=== PATIENT | female | born 1985 | race Caucasian/White ===

== ENCOUNTER 2018-08-20 17:05 | Emergency (ER) | payer OTHER ==
[2018-08-20 19:20] VITALS: BP 146/77
--- NOTE | 2018-08-20 19:40 | ED ---
Skin Complaint - HPI Summary HPI Summary: 33 yr old with swelling left axilla. Onset of symptoms a week ago. The patient shaved, developed a pimple, popped the pimple five days ago, put deodorant on again, and then area swelled up more over the weekend. No fever, chills. No other complaints. - History of Current Complaint Chief Complaint: UCSkin Time Seen by Provider: 08/20/18 19:29 Stated Complaint: SKIN COMPLAINT Hx Last Menstrual Period: 08/12/18 Pain Intensity: 2 - Allergy/Home Medications Allergies/Adverse Reactions: Allergies Allergy/AdvReac Type Severity Reaction Status Date / Time acetaminophen Allergy Itching Verified 08/20/18 19:17 Home Medications: Home Medications FLUoxetine CAP* [PROzac CAP*] 5 mg PO DAILY 08/20/18 [History Confirmed 08/20/18 ] PMH/Surg Hx/FS Hx/Imm Hx - Surgical History Surgery Procedure, Year, and Place: 11/2014 Infectious Disease History: No Infectious Disease History: Denies: Traveled Outside the [place] in Last 30 Days - Family History Known Family History: Positive: None - Social History Alcohol Use: None Substance Use Type: Reports: None Smoking Status (MU): Never Smoked Tobacco Review of Systems Constitutional: Negative Positive: Other - skin swelling axilla left All Other Systems Reviewed And Are Negative: Yes Physical Exam Triage Information Reviewed: Yes Vital Signs On Initial Exam: Initial Vitals Temp Pulse Resp BP Pulse Ox 97.8 F 83 15 146/77 100 08/20/18 19:14 08/20/18 19:14 08/20/18 19:14 08/20/18 19:14 08/20/18 19:14 Appearance: Positive: Well-Appearing Skin: Positive: Warm, Other - left axilla is with induration about 2 cm, no fluctuance, mild cellulitis. Head/Face: Positive: Normal Head/Face Inspection Eyes: Positive: EOMI ENT: Positive: Normal ENT inspection Neck: Positive: Nontender Respiratory/Lung Sounds: Positive: Clear to Auscultation, Breath Sounds Present Cardiovascular: Positive: RRR. Negative: Murmur Abdomen Description: Negative: Distended Musculoskeletal: Positive: Strength/ROM Intact Neurological: Positive: Sensory/Motor Intact, Alert, Oriented to Person Place, Time, CN Intact II-III Psychiatric: Positive: Normal Diagnostics - Vital Signs Vital Signs Temp Pulse Resp BP Pulse Ox 08/20/18 19:14 97.8 F 83 15 146/77 100 - Laboratory Lab Statement: Any lab studies that have been ordered have been reviewed, and results considered in the medical decision making process. Course/Dx - Course Course Of Treatment: folliculitis. Rx Bactrim DS. - Diagnoses Provider Diagnoses: Folliculitis Discharge - Sign-Out/Discharge Documenting (check all that apply): Patient Departure All imaging exams completed and their final reports reviewed: No Studies - Discharge Plan Condition: Good Disposition: HOME Prescriptions: Sulfamethox/Trimethoprim DS* [Bactrim DS 800/160 TAB*] 1 tab PO BID #20 tab Patient Education Materials: Furunculosis and Carbunculosis (ED), Hypertension (ED) Referrals: Rachel Ryan PA [Primary Care Provider] - 3 Days - Billing Disposition and Condition Condition: GOOD Disposition: Home
--- NOTE | 2018-08-21 20:42 | ED ---
Progress - Progress Note Progress Note: The patient reports that she has not taken the bactrim today. It made her stomach feel warm last night after taking, and that was the only symptoms after taking it. No hives, no SOB, no pain. Presently she is feeling much better. The patient states that her left axilla has drained today pus, it is much smaller, it is not painful. She feels it has gotten much better already. She does not want to take the antibiotics at this point, and she is going to follow up with her primary doctor tomorrow. Course/Dx - Course Course Of Treatment: folliculitis. Rx Bactrim DS. - Diagnoses Provider Diagnoses: Folliculitis Discharge - Sign-Out/Discharge Documenting (check all that apply): Patient Departure All imaging exams completed and their final reports reviewed: No Studies - Discharge Plan Condition: Good Disposition: HOME Prescriptions: Sulfamethox/Trimethoprim DS* [Bactrim DS 800/160 TAB*] 1 tab PO BID #20 tab Patient Education Materials: Furunculosis and Carbunculosis (ED), Hypertension (ED) Referrals: Rachel Ryan PA [Primary Care Provider] - 3 Days - Billing Disposition and Condition Condition: GOOD Disposition: Home
== END 2018-08-20 19:42 | disposition home or self-care (01) ==
LOC: UCCORT 17:05
DX: L73.9 Follicular disorder, unspecified (principal); Z88.6 Allergy status to analgesic agent
CPT/HCPCS: 99202; G0463

== ENCOUNTER 2018-11-03 17:22 | Emergency (ER) | payer OTHER ==
--- NOTE | 2018-11-03 17:59 | UC ---
Skin Complaint HPI - HPI Summary HPI Summary: 33 yo female presents with LEFT axilla area of redness, pain, and swelling for the last 2-3 days. She tells me that she had a boil here in the past that spontaneously started draining and resolved on it's own. This one seems to be more under the skin and has noticed some surrounding redness. Denies fever, chills. - History of Current Complaint Time Seen by Provider: 11/03/18 17:56 Stated Complaint: UNDERARM LUMP LEFT SIDE Hx Obtained From: Patient Hx Last Menstrual Period: 08/12/18 Onset/Duration: Gradual Onset Timing: Constant Onset Severity: Mild Current Severity: Mild Pain Intensity: 3 Pain Scale Used: 0-10 Numeric - Allergy/Home Medications Allergies/Adverse Reactions: Allergies Allergy/AdvReac Type Severity Reaction Status Date / Time acetaminophen Allergy Itching Verified 08/20/18 19:17 PMH/Surg Hx/FS Hx/Imm Hx Psychological History: Anxiety, Depression - Surgical History Surgical History: Yes Surgery Procedure, Year, and Place: 11/2014 - Family History Known Family History: Positive: None - Social History Occupation: Employed Full-time Lives: With Family Alcohol Use: None Substance Use Type: None Smoking Status (MU): Never Smoked Tobacco Review of Systems All Other Systems Reviewed And Are Negative: Yes Constitutional: Positive: Negative Respiratory: Positive: Negative Cardiovascular: Positive: Negative Neurovascular: Positive: Negative Neurological: Positive: Negative Psychological: Positive: Negative Physical Exam - Summary Physical Exam Summary: GENERAL: NAD. WDWN. No pain distress. SKIN: Left axilla with 2.0cm area of moderate erythema and induration with subcutaneous hardness. Mild warmth and TTP. No streaking. No fluctuance. NECK: Supple. Nontender. No lymphadenopathy. CHEST: No accessory muscle use. Breathing comfortably and in no distress. CV: Pulses intact. Cap refill <2seconds NEURO: Alert. PSYCH: Age appropriate behavior. Triage Information Reviewed: Yes Vital Signs: Vital Signs: Temp Pulse Resp BP Pulse Ox 98.6 F 78 14 117/62 100 11/03/18 17:59 11/03/18 17:59 11/03/18 17:59 11/03/18 17:59 11/03/18 17:59 Vital Signs Reviewed: Yes Course/Dx - Course Course Of Treatment: Abscess left axilla. Not ready for I&D at this time. Will place her on keflex and have her apply a cool compress. Return if this needs drainage. - Diagnoses Provider Diagnosis: Abscess of left axilla Discharge - Sign-Out/Discharge Documenting (check all that apply): Patient Departure All imaging exams completed and their final reports reviewed: No Studies - Discharge Plan Condition: Stable Disposition: HOME Prescriptions: Cephalexin CAP* [Keflex CAP*] 500 mg PO TID #21 cap Patient Education Materials: Abscess (ED) Referrals: Rachel Ryan PA [Primary Care Provider] - Additional Instructions: If you develop a fever, shortness of breath, chest pain, new or worsening symptoms - please call your PCP or go to the ED. Apply a cool compress to the area for pain and swelling relief The antibiotic may resolve the abscess OR may bright it to a "head" where it will requiring draining - if this happens, please return and we can drain this for you. - Billing Disposition and Condition Condition: STABLE Disposition: Home
[2018-11-03 18:05] VITALS: BP 117/62
== END 2018-11-03 18:09 | disposition home or self-care (01) ==
LOC: UCCORT 17:22
DX: L02.412 Cutaneous abscess of left axilla (principal); Z88.6 Allergy status to analgesic agent
CPT/HCPCS: 99212; G0463

== ENCOUNTER 2019-03-26 15:21 | Emergency (ER) | payer OTHER ==
[2019-03-26 15:44] VITALS: BP 122/75
--- NOTE | 2019-03-26 16:05 | ED ---
Skin Complaint - HPI Summary HPI Summary: 33 yr old female with the complaint of furnuncel right lateral thigh. The patient has had this problem in the past, and last was 2-3 months ago. She shaves frequently and uses her older razors sometimes. This boil begain four days ago and has gotten larger. She has some very smaller red spots on the other leg and in the left axilla where she has been shaving. - History of Current Complaint Chief Complaint: UCSkin Time Seen by Provider: 03/26/19 15:46 Stated Complaint: RIGHT LEG SKIN CONCERN Hx Last Menstrual Period: 08/12/18 Pain Intensity: 0 - Allergy/Home Medications Allergies/Adverse Reactions: Allergies Allergy/AdvReac Type Severity Reaction Status Date / Time acetaminophen Allergy See Comment Verified 03/26/19 15:40 Home Medications: Home Medications Multivitamin [Multivitamins] 1 cap PO DAILY 03/26/19 [History Confirmed 03/26/19 ] PMH/Surg Hx/FS Hx/Imm Hx Endocrine/Hematology History: Denies: Hx Diabetes, Hx Thyroid Disease Cardiovascular History: Denies: Hx Hypertension Respiratory History: Denies: Hx Asthma, Hx Chronic Obstructive Pulmonary Disease (COPD) GI History: Denies: Hx Ulcer - Surgical History Surgery Procedure, Year, and Place: 11/2014 Infectious Disease History: No Infectious Disease History: Denies: Hx Hepatitis, Hx Human Immunodeficiency Virus (HIV), Traveled Outside the US in Last 30 Days - Family History Known Family History: Positive: None - Social History Alcohol Use: None Substance Use Type: Reports: None Smoking Status (MU): Never Smoked Tobacco Review of Systems Constitutional: Negative Positive: Other - furuncle All Other Systems Reviewed And Are Negative: Yes Physical Exam Triage Information Reviewed: Yes Vital Signs On Initial Exam: Initial Vitals Temp Pulse Resp BP Pulse Ox 99.4 F 80 18 122/75 100 03/26/19 15:33 03/26/19 15:33 03/26/19 15:33 03/26/19 15:33 03/26/19 15:33 Vital Signs Reviewed: Yes Appearance: Positive: Well-Appearing, No Pain Distress Skin: Positive: Other - furuncle right thigh without fluctuance. There are smaller lesions right lower and left lower leg with also left axilla over hair follicles. Eyes: Positive: EOMI ENT: Positive: Normal ENT inspection Neck: Positive: Nontender Respiratory/Lung Sounds: Positive: Clear to Auscultation, Breath Sounds Present Cardiovascular: Positive: RRR. Negative: Murmur Abdomen Description: Negative: Distended Musculoskeletal: Positive: Strength/ROM Intact Neurological: Positive: Sensory/Motor Intact, Alert, Oriented to Person Place, Time, CN Intact II-III, Normal Gait, Speech Normal Psychiatric: Positive: Normal Diagnostics - Vital Signs Vital Signs Temp Pulse Resp BP Pulse Ox 03/26/19 15:33 99.4 F 80 18 122/75 100 - Laboratory Lab Statement: Any lab studies that have been ordered have been reviewed, and results considered in the medical decision making process. Course/Dx - Course Course Of Treatment: 33 yr old with furuncle and folliculitis. Rx keflex. She states keflex works well for her in the past. She will follow up with PMD. - Diagnoses Provider Diagnoses: Furuncle, Folliculitis Discharge - Sign-Out/Discharge Documenting (check all that apply): Patient Departure All imaging exams completed and their final reports reviewed: No Studies - Discharge Plan Condition: Good Disposition: HOME Prescriptions: Cephalexin CAP* [Keflex CAP*] 500 mg PO QID #40 cap Patient Education Materials: Furunculosis and Carbunculosis (ED) Referrals: Rachel Ryan PA [Primary Care Provider] - 2 Days - Billing Disposition and Condition Condition: GOOD Disposition: Home
== END 2019-03-26 16:06 | disposition home or self-care (01) ==
LOC: UCCORT 15:21
DX: L02.425 Furuncle of right lower limb (principal); L73.9 Follicular disorder, unspecified
CPT/HCPCS: 99212; G0463

== ENCOUNTER 2019-03-29 19:02 | Emergency (ER) | payer OTHER ==
--- OUTSIDE RECORDS SUMMARY | 2019-03-29 19:41 | XMS REPORT | Continuity of Care Document ---
:1985 External Reference #:[id number] Author Name Erica Brewer Care Team Providers Name Role Phone Rachel Ryan RPA Primary Care Physician Unavailable Payers Date Identification Numbers Payment Provider Subscriber Policy Number: [id number] Lif[employer] Benefit Solution Bev Chan [facility] [address] [place] [address] Problems Active Problems Provider Date Vasovagal syncope TALA Urena Onset: 02/06/2019 Note: neurocardiogenic Anxiety disorder TALA Urena Onset: 02/06/2019 Family History Date Family Member(s) Observation Comments Father Hypercholesterolemia Social History Type Date Description Comments Sex Unknown Marital Status Lives With Lives With Son Stephen Occupation Currently Working, [employer] Tobacco Use Start: Unknown Patient has never smoked Smoking Status Reviewed: 03/28/19 Patient has never smoked Allergies, Adverse Reactions, Alerts Active Allergies Reaction Severity Comments Date Bactrim 03/28/2019 Tylenol 03/28/2019 Medications Active Medications SIG Qnty Indications Ordering Provider Date Multi Vitamin Daily 1 by mouth 30tabs [place] 03/28/2019 every day MD Megan Tablets Fluoxetine HCL 1/2 tab by 30caps [place] 03/28/2019 10mg mouth every day MD Megan Capsules Propranolol HCL 1/2 tab by 90tabs [place] 02/06/2019 10mg mouth twice a MD Megan Tablets day Keflex 1 tab by mouth Unknown 500mg Capsules four times a day Vital Signs Date Vital Result Comment 03/28/2019 3:26pm Body Temperature 97.1 F 03/28/2019 3:22pm Height 66 inches 5'6" Weight 163.19 lb Heart Rate 70 /min BP Systolic Sitting 118 mmHg BP Diastolic Sitting 72 mmHg O2 % BldC Oximetry 98 % BMI (Body Mass Index) 26.3 kg/m2 Plan of Treatment 03/28/2019 - Rachelhilton Ryan, PAL02.91 Cutaneous abscess, unspecifiedNew Labs: CBC Auto Diff, Ordered: 03/28/19N93.9 Abnormal uterine and vaginal bleeding, unspecifiedNew Labs:TSH (Thyroid Stim Horm), Ordered: 03/28/19AllNew Medication: Multi Vitamin Daily - 1 by mouth every dayFluoxetine HCL 10 mg - 1/2 tab by mouth every day
[2019-03-29 20:01] VITALS: BP 126/77
--- NOTE | 2019-03-29 20:24 | UC ---
UC General HPI - HPI Summary HPI Summary: pt is c/o a urethral irritation x 2 days and discomfort with urination. she is on day 4 of keflex for a R thigh skin infection that is improving. she saw her pcp who did not do a urine culture because pt is on the keflex. pcp advise she tx for a yeast infection and increase her fluids. she did not tx for the yeast. she denies hx MRSA. she denies risk/concern for pelvic infection. - History of Current Complaint Chief Complaint: UCGU Stated Complaint: URINARY Time Seen by Provider: 03/29/19 19:44 Hx Obtained From: Patient Hx Last Menstrual Period: 03/17/19 Onset/Duration: Gradual Onset Timing: Constant Pain Intensity: 1 Associated Signs & Symptoms: Negative: Abdominal Pain, Fever - Allergy/Home Medications Allergies/Adverse Reactions: Allergies Allergy/AdvReac Type Severity Reaction Status Date / Time acetaminophen AdvReac See Comment Verified 03/29/19 19:55 Sulfa (Sulfonamide AdvReac See Comment Verified 03/29/19 19:55 Antibiotics) PMH/Surg Hx/FS Hx/Imm Hx Psychological History: Anxiety - Surgical History Surgical History: Yes Surgery Procedure, Year, and Place: , 2014 - Family History Known Family History: Positive: None - Social History Alcohol Use: None Substance Use Type: None Smoking Status (MU): Never Smoked Tobacco - Immunization History Vaccination Up to Date: Yes Review of Systems All Other Systems Reviewed And Are Negative: Yes Constitutional: Negative: Fever Skin: Positive: Rash - R thigh Gastrointestinal: Positive: Nausea. Negative: Abdominal Pain, Vomiting, Diarrhea Genitourinary: Positive: Dysuria, Frequency. Negative: Hematuria, Urgency, Vaginal/Penile Discharge, Vaginal/Penile Pain, Ulceration/Lesion, Abnormal Bleeding Physical Exam Triage Information Reviewed: Yes Appearance: Well-Appearing Vital Signs: Initial Vital Signs Temp 97.8 F 03/29/19 19:49 Pulse 75 03/29/19 19:49 Resp 16 03/29/19 19:49 BP 126/77 03/29/19 19:49 Pulse Ox 100 03/29/19 19:49 Vital Signs Reviewed: Yes Eyes: Positive: Conjunctiva Clear ENT: Positive: Normal ENT inspection Neck: Positive: Supple, Nontender, No Lymphadenopathy Respiratory: Positive: Lungs clear, Normal breath sounds Cardiovascular: Positive: RRR, No Murmur Abdomen Description: Positive: Nontender, No Organomegaly, Soft Bowel Sounds: Positive: Present Pelvic Exam: Positive: Other - declined by pt Musculoskeletal: Positive: ROM Intact Neurological: Positive: Alert Psychological: Positive: Age Appropriate Behavior Skin Exam: Normal Skin: Positive: Rashes - R thigh, mild erythema but not fluctuant and no drainage. Diagnostics - Laboratory Lab Results: u/a=1+ blood and trace leukocytes with culture pending. mycoplasma and urea plasma urine tests are pending as well. Course/Dx - Differential Dx - Multi-Symptom Differential Diagnoses: Other - non toxic. no acute abdomen. pelvic declined by pt. pt did deny elizabeth s/s' and risk/concern for pelvic infection/sti. will tx for possible yeast vaginitis, continue the keflex and suggest azo while additional cultures are pending. - Diagnoses Provider Diagnosis: Dysuria Discharge - Sign-Out/Discharge Documenting (check all that apply): Patient Departure All imaging exams completed and their final reports reviewed: No Studies - Discharge Plan Condition: Stable Disposition: HOME Prescriptions: Fluconazole 150 MG TAB* [Diflucan 150 MG TAB*] 150 mg PO ONCE #1 tablet Patient Education Materials: Dysuria (ED) Referrals: Rachel Ryan PA [Primary Care Provider] - 3 Days Additional Instructions: TAKE OVER THE COUNTER AZO PER LABEL. CONTINUE THE KEFLEX. - Billing Disposition and Condition Condition: STABLE Disposition: Home
--- NOTE | 2019-04-01 07:09 | UC ---
- Progress Note Progress Note: urine final no growth no change ljj 04/01/19 Course/Dx - Diagnoses Provider Diagnoses: Dysuria Discharge - Sign-Out/Discharge Documenting (check all that apply): Patient Departure All imaging exams completed and their final reports reviewed: No Studies - Discharge Plan Condition: Stable Disposition: HOME Prescriptions: Fluconazole 150 MG TAB* [Diflucan 150 MG TAB*] 150 mg PO ONCE #1 tablet Patient Education Materials: Dysuria (ED) Referrals: Rachel Ryan PA [Primary Care Provider] - 3 Days Additional Instructions: TAKE OVER THE COUNTER AZO PER LABEL. CONTINUE THE KEFLEX. - Billing Disposition and Condition Condition: STABLE Disposition: Home
[2019-04-03 15:57] LABS: Ureaplasma Source URINE; Ureaplasma parvum PCR Positive; Ureaplasma urealyticum PCR Negative
[2019-04-03 15:59] LABS: Mycoplasma hominis Result Negative; Mycoplasma hominis Source URINE
--- NOTE | 2019-04-03 19:14 | UC ---
- Progress Note Progress Note: pt called and advised of the + ureaplasma parvum. she had slight improvement on the keflex. she has been advised to stop the keflex and that I will tx her with doxycycline. need for f/u stressed. 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 Course/Dx - Diagnoses Provider Diagnoses: Dysuria Discharge - Sign-Out/Discharge Documenting (check all that apply): Patient Departure All imaging exams completed and their final reports reviewed: No Studies - Discharge Plan Condition: Stable Disposition: HOME Prescriptions: DOXYcycline CAP(*) [DOXYcycline 100MG CAP(*)] 100 mg PO BID 7 Days #14 cap Fluconazole 150 MG TAB* [Diflucan 150 MG TAB*] 150 mg PO ONCE #1 tablet Patient Education Materials: Dysuria (ED) Referrals: Rachel Ryan PA [Primary Care Provider] - 3 Days Additional Instructions: TAKE OVER THE COUNTER AZO PER LABEL. CONTINUE THE KEFLEX. - Billing Disposition and Condition Condition: STABLE Disposition: Home
== END 2019-03-29 20:38 | disposition home or self-care (01) ==
LOC: UCCORT 19:02
DX: R30.0 Dysuria (principal)
CPT/HCPCS: 81003; 87086; 87798; 99212; G0463

== ENCOUNTER 2019-04-29 17:03 | Emergency (ER) | payer OTHER ==
--- OUTSIDE RECORDS SUMMARY | 2019-04-29 17:54 | XMS REPORT | Continuity of Care Document ---
:1985 External Reference #:[id number] Author Name Tres Pickens Care Team Providers Name Role Phone Rachel Ryan RPA Primary Care Physician Unavailable Payers Date Identification Numbers Payment Provider Subscriber Policy Number: [id number] [employer] Bev Chan PayID: [facility]BS[facility] [id number] [place] [address] Problems Active Problems Provider Date Vasovagal syncope TALA Urena Onset: 02/06/2019 Note: neurocardiogenic Anxiety disorder TALA Urena Onset: 02/06/2019 Family History Date Family Member(s) Observation Comments Father Hypercholesterolemia Mother Hypercholesterolemia Mother Osteoarthritis Mother Anxiety/depression Social History Type Date Description Comments Sex Unknown Marital Status Lives With Lives With Son Stephen Occupation Currently Working, [employer] Tobacco Use Start: Unknown Patient has never smoked Smoking Status Reviewed: 04/09/19 Patient has never smoked Allergies, Adverse Reactions, Alerts Active Allergies Reaction Severity Comments Date Bactrim 03/28/2019 Tylenol 03/28/2019 Medications Active Medications SIG Qnty Indications Ordering Date Provider Phenazopyridine HCL 1 tab by mouth 12tabs N39.0 Glenroy 04/09/2019 200mg three times a MD Megan Tablets day as needed dysuria Fluoxetine HCL 1/2 tab by Glenroy 04/02/2019 10mg Tablets mouth every day MD Megan Multi Vitamin Daily 1 by mouth 30tabs [place] 03/28/2019 Tablets every day MD Megan Propranolol HCL 1/2 tab by 90tabishop Tim 02/06/2019 10mg Tablets mouth twice a MD Megan day Doxycycline Hyclate one tablet Unknown 100mg twice daily for Capsules 10 days. History Medications Fluoxetine HCL 1/2 tab by 30capjimy Guzman MD 03/28/2019 - 10mg mouth every day 04/02/2019 Capsules Keflex 1 tab by mouth Unknown - 500mg Capsules four times a 04/09/2019 day Vital Signs Date Vital Result Comment 04/09/2019 11:48am Height 66 inches 5'6" Weight 164.25 lb Heart Rate 80 /min BP Systolic Sitting 116 mmHg BP Diastolic Sitting 74 mmHg Body Temperature 97.8 F O2 % BldC Oximetry 98 % BMI (Body Mass Index) 26.5 kg/m2 03/28/2019 3:22pm Height 66 inches 5'6" Weight 163.19 lb Heart Rate 70 /min BP Systolic Sitting 118 mmHg BP Diastolic Sitting 72 mmHg O2 % BldC Oximetry 98 % BMI (Body Mass Index) 26.3 kg/m2 Results Test Date Facility Test Result H/L Range Note Ureaplasma 03/29/2019 [facility] Ureaplasma Source URINE [address] [place] [address] [phone] Ureaplasma urealyticum PCR Negative 1 Ureaplasma parvum PCR Positive Abnormal 2 Mycoplasma Hominis 03/29/2019 [facility] Mycoplasma hominis URINE PCR [address] [place] [address] [phone] Mycoplasma hominis Result Negative 3 Poc Urinalysis 03/29/2019 [facility] Poc Glucose, Negative Negative [address] [place] [address] [phone] Poc Bilirubin, Urine Negative Negative Poc Ketone, Urine Negative Negative Poc Specific [place], Urine 1.010 N 1.010-1.030 Poc Blood, Urine 1+ Abnormal Negative Poc pH, Urine 6.0 N 5-9 Poc Protein, Urine Negative Negative Poc Urobilinogen, Urine 0.2 Negative Poc Nitrite, Urine Negative Negative Poc Leukocytes, Urine Trace Abnormal Negative Poc Color, Urine Light yellow Poc Clarity, Urine Clear 4 Urine Culture And 03/29/2019 [facility] Urine Culture SEE RESULT 5, [address] [place] [address] [phone] REFERENCE VALUE Not Applicable 2 REFERENCE VALUE Not Applicable ADDITIONAL INFORMATION This test was developed and its performance characteristics determined by [facility] in a manner consistent with CLIA requirements. This test has not been cleared or approved by the U.S. Food and Drug Administration. Test Performed by: [facility] - [address] [address] 3 REFERENCE VALUE Not Applicable ADDITIONAL INFORMATION This test was developed and its performance characteristics determined by [facility] in a manner consistent with CLIA requirements. This test has not been cleared or approved by the U.S. Food and Drug Administration. Test Performed by: [facility] - [address] [address] Coutierier: [id number] SEE RESULT BELOW Name: SATINDERBEV Shemar : [address]: Racquel Kelley MD Acct: [id number] Unit: [id number] AGE: 33 Location: [facility] Re03/29/19 SEX: F Status: DEP ER SPEC: [id number] LORENA: 03/29/[address]: Rae EDGAR REQ: [id number] RECD: [id number] STATUS: COMP HR DR: Racquel EDGAR _ SOURCE: URINE SPDESC: ORDERED: Urine Culture COMMENTS: [id number] Procedure Result Reported Site Urine Culture Final 03/31/19- 1204 ML No Growth (<1,000 CFU/mL) * ML - Main Lab . END OF REPORT DEPARTMENT OF PATHOLOGY, [address] [place] [address] Moises Mobley M.D. Director [facility] # [id number] Encounters Type Date Location Provider Dx Diagnosis Office Visit 03/28/2019 [facility] Rachel L02.91 Cutaneous abscess , 3:00p TALA Ryan unspecified N93.9 Abnormal uterine and vaginal bleeding, unspecified Plan of Treatment 04/09/2019 - JAX Urena39.0 Urinary tract infection, site not specifiedNew Medication:Phenazopyridine HCL 200 mg - 1 tab by mouth three times a day as needed dysuria
[2019-04-29 18:34] VITALS: BP 119/74
--- NOTE | 2019-04-29 18:43 | UC ---
Ear Complaint HPI - HPI Summary HPI Summary: 33 yo female with left otalgia and decreased hearing x 1 day URI symtpoms x 3 days no fever - History of Current Complaint Chief Complaint: UCRespiratory Stated Complaint: EAR PAIN Time Seen by Provider: 04/29/19 18:19 Hx Obtained From: Patient Hx Last Menstrual Period: 04/16/19 Onset/Duration: Gradual Onset, Lasting Days Severity Initially: Mild Severity Currently: Moderate Pain Intensity: 2 Pain Scale Used: 0-10 Numeric Associated Signs/Symptoms: Positive: Hearing Loss, URI Symptoms - Allergies/Home Medications Allergies/Adverse Reactions: Allergies Allergy/AdvReac Type Severity Reaction Status Date / Time acetaminophen AdvReac See Comment Verified 04/29/19 18:31 Sulfa (Sulfonamide AdvReac See Comment Verified 04/29/19 18:31 Antibiotics) PMH/Surg Hx/FS Hx/Imm Hx Previously Healthy: Yes - Surgical History Surgical History: Yes Surgery Procedure, Year, and Place: , 2014 - Family History Known Family History: Positive: None, Non-Contributory - Social History Alcohol Use: None Substance Use Type: None Smoking Status (MU): Never Smoked Tobacco - Immunization History Vaccination Up to Date: Yes Review of Systems All Other Systems Reviewed And Are Negative: Yes Constitutional: Positive: Negative Skin: Positive: Negative Eyes: Positive: Negative ENT: Positive: Ear Ache, Nasal Discharge Respiratory: Positive: Negative Cardiovascular: Positive: Negative Gastrointestinal: Positive: Negative Genitourinary: Positive: Negative Motor: Positive: Negative Neurovascular: Positive: Negative Musculoskeletal: Positive: Negative Neurological: Positive: Negative Psychological: Positive: Negative Physical Exam Triage Information Reviewed: Yes Appearance: Well-Appearing, No Pain Distress, Well-Nourished Vital Signs: Initial Vital Signs Temp 97.9 F 04/29/19 18:32 Pulse 83 04/29/19 18:32 Resp 16 04/29/19 18:32 BP 119/74 04/29/19 18:32 Pulse Ox 100 04/29/19 18:32 Vital Signs Reviewed: Yes Eyes: Positive: Conjunctiva Clear ENT: Positive: Nasal congestion, Uvula midline. Negative: Hearing grossly normal - decreased hearing left ear, Nasal drainage, TMs normal, Tonsillar swelling, Tonsillar exudate, Trismus, Muffled voice, Hoarse voice Dental Exam: Normal Neck: Positive: Supple, Nontender, No Lymphadenopathy Respiratory: Positive: Lungs clear, Normal breath sounds, No respiratory distress Cardiovascular: Positive: RRR Musculoskeletal: Positive: ROM Intact, No Edema Neurological: Positive: Alert Psychological Exam: Normal Skin Exam: Normal Ear Complaint Course/Dx - Differential Dx/Diagnosis Provider Diagnosis: Left otitis media Discharge - Sign-Out/Discharge Documenting (check all that apply): Patient Departure All imaging exams completed and their final reports reviewed: No Studies - Discharge Plan Condition: Stable Disposition: HOME Prescriptions: Amoxicillin PO (*) [Amoxicillin 875 MG (*)] 875 mg PO BID #20 tab Fluconazole 150 MG (NF) [Diflucan 150 mg (NF)] 150 mg PO ONCE #2 tab Patient Education Materials: Ear Infection (ED) Referrals: Rachel Ryan PA [Primary Care Provider] - 2 Weeks (if hearing not back to normal) Additional Instructions: recheck in 4 days if pain not markedly decreased - Billing Disposition and Condition Condition: STABLE Disposition: Home
== END 2019-04-29 18:49 | disposition home or self-care (01) ==
LOC: UCCORT 17:03
DX: H66.92 Otitis media, unspecified, left ear (principal)
CPT/HCPCS: 99212; G0463